=== PATIENT | male | born 1960 | race Caucasian/White ===

== ENCOUNTER → 2017-11-18 | Outpatient (CLI) | payer OTHER ==
--- NOTE | 2017-11-18 15:22 | PCVCIMAG ---
EXAM: BILATERAL CAROTID DUPLEX INDICATION: Carotid Occlusive Disease. FINDINGS: Doppler Measurements (centimeters per second): RIGHT: Peak CCA-99, Peak ECA-90, Diastolic ICA-21, Peak ICA-60, ICA/CCA Ratio-0.6. LEFT: Peak CCA-116, Peak ECA-114, Diastolic ICA-22, Peak ICA-114, ICA/CCA Ratio-1.0. RIGHT CAROTID: The carotid bulb has mild plaque. The proximal internal carotid artery shows <40% stenosis. The common carotid artery shows no significant stenosis. The external carotid artery shows no significant stenosis. LEFT CAROTID: The carotid bulb has minimal plaque. The proximal internal carotid artery shows no significant stenosis. The common carotid artery shows no significant stenosis. The external carotid artery shows no significant stenosis. Antegrade flow in both vertebral arteries. IMPRESSION: <40% stenosis of the right internal carotid artery with mild plaque. No significant stenosis of the left internal carotid artery with minimal plaque. LOC:[place] [id number]
--- NOTE | 2017-11-18 16:54 | PCVCIMAG ---
APPROVED REPORT Study performed: 11/18/2017 15:54:46 Exam: Stress Echocardiogram Indication: Hyperlipidemia, Hypertension, CAD , CAD s/p CABG Stress Nurse: Angela Worthington RN Status: routine Ht: 6 ft 2 in HR: 66 bpm BP: 130/80 mmHg Medical History Medical History: Hyperlipidemia, HTN, CAD s/p CABG Procedure The patient underwent an Exercise Stress Test using the James Protocol. Blood pressure, heart rate, and EKG were monitored. An Echocardiogram was performed by environmental sampling technician in four stages in quad fashion. At peak stress, four selected images were obtained and placed side by side with resting images for comparison. Stress Test Details Stress Test: Exercise stress testing was performed using a James protocol. HR Resting HR: 66 bpmMax Heart Rate (APMHR): 162 bpm Max HR Achieved: 150 bpmTarget HR (85% APMHR): 137 bpm % of APMHR: 92 HR response to stress: Normal HR response to stress BP Resting BP: 130/80 mmHg Max BP: 146/80 mmHg ECG Resting ECG: Sinus Rhythm Stress ECG: Sinus Rhythm Recovery ECG: Sinus Rhythm Recovery Arrhythmia: VPC Clinical Reason for Termination: Maximal effort Exercise duration: 10 min 42 sec Highest Stage Achieved: Stage 4: 4.2 mph at 16% grade. Exercise capacity: 13.40 METs Overall Exercise Capacity for Age: Normal Pre-Stress Echo The resting Echocardiogram showed normal left ventricular contractility with an estimated Ejection Fraction of about >55%. Inferior wall is hypokinetic. Post-Stress Echo The stress Echocardiogram showed left ventricular contractility with an estimated Ejection Fraction of about 55-60%. Inferior wall remains hypokinetic. No new regional wall motion abnormalites. Conclusion Clinical Response: Non-ischemic Exercise Capacity: Average Stress ECG Response: Non-ischemic Stress Echo Images: Non-ischemic Other Information Study Quality: Good
== END | disposition home or self-care (01) ==
LOC: PCVCIMAG 14:27
PROVIDERS: ATTEND Internal Medicine Cardiovascular Disease
DX: I65.21 Occlusion and stenosis of right carotid artery (principal); I25.10 Atherosclerotic heart disease of native coronary artery without angina pectoris; R09.89 Other specified symptoms and signs involving the circulatory and respiratory systems
CPT/HCPCS: 93325; 93351; 93880